=== PATIENT | male | born 1985 | race African-American/Black ===

== ENCOUNTER 2018-02-06 21:09 | Emergency (ER) | payer SELFPAY ==
[2018-02-06 21:48] LABS: ADD MAN DIFF? NO
[2018-02-06 21:52] LABS: BASO % 0 % (0-3); EOS # 0.3 x10^3/uL (0.0-0.7); EOS % 4 % (0-3); HEMATOCRIT 46.6 % (39.0-53.0); LYMPH # 1.6 x10^3/uL (1.0-4.8); LYMPH % 26 % (24-48); MEAN CORPUSCULAR HEMOGLOBIN 30 pg (25-35); MEAN CORPUSCULAR HGB CONC 34 g/dL (31-37); MEAN CORPUSCULAR VOLUME 89 fL (79-100); MONO # 0.6 x10^3/uL (0.0-1.1); MONO % 10 % (0-9); NEUT # 3.7 x10^3uL (1.8-7.7); NEUT % 60 % (31-73); PLATELET COUNT 216 x10^3/uL (140-400); RED BLOOD COUNT 5.27 x10^6/uL (4.30-5.70); RED CELL DISTRIBUTION WIDTH 13.1 % (11.5-14.5); WHITE BLOOD COUNT 6.2 x10^3/uL (4.0-11.0)
[2018-02-06 22:03] LABS: ANION GAP 7 (6-14); BLOOD UREA NITROGEN 16 mg/dL (8-26); CALCIUM 9.8 mg/dL (8.5-10.1); CARBON DIOXIDE 31 mmol/L (21-32); CHLORIDE 103 mmol/L (98-107); GFR 106.2; GLUCOSE 94 mg/dL (70-99); SODIUM 141 mmol/L (136-145)
[2018-02-06] MEDS: KETOROLAC 30 MG/ML INJ. IV (22:06)
[2018-02-06 22:11] LABS: TROPONINI < 0.017 ng/mL (0.000-0.055)
[2018-02-06 22:39] LABS: D-DIMER < 0.27 ug/mlFEU (0.00-0.50)
[2018-02-06] MEDS: LIDO:MAALOX 1:1 20 ML SINGLE DOSE. PO (23:34)
== END 2018-02-07 00:16 | disposition home or self-care (01) ==
LOC: ER 02-07 00:16
DX: R07.89 Other chest pain (principal); K21.9 Gastro-esophageal reflux disease without esophagitis; F12.10 Cannabis abuse, uncomplicated; F17.200 Nicotine dependence, unspecified, uncomplicated; Z79.899 Other long term (current) drug therapy
CPT/HCPCS: 36415; 71045; 80048; 84484; 85025; 85379; 93005; 96374; 99285-25; J1885